=== PATIENT | female | born 1940 | race Caucasian/White ===

== ENCOUNTER → 2016-07-14 | Outpatient (CLI) | payer MEDICARE, OTHER ==
[~2016-07-14] MED LIST: ADVAIR 250-501 EACH IH; ASPIRIN PO; AURALGAN OTIC S14 ML OT; AZMACORT20 GM INH; CALCIUM 500 + D1 TAB PO; CERTAGEN PO; COMBIVENT INH14.7 GM INH; CONGESTION MED; HCTZ PO; LIPITOR PO; MOBIC PO; NEXIUM PO; ULTRAM PO; VICODIN 5/1 TAB 5/50 PO; ZITHROMAX1 G/PKT PO; ZOCOR PO; ZYRTEC PO
--- NOTE | ~2016-07-14 | CR63 ---
[facility] A Service of [facility] RADIOLOGY TEXT RESULTS PATIENT: JENS RUSSELL LOCATION: SRAD : 40 UNIT #: [id number] AGE: [address]: OMER CHAPIN APRN SEX: F ORDER DR: [id number] [address] [address] [id number] O MR#: [id number] Acc #: [id number] NAME: JENS RUSSELL : 1940 SEX: F STUDY DATE/TIME: 07/14/2016 11:13 UNIT: [facility] ROOM: STUDY DESCRIPTION: CR Chest 2 View Attending Physician: Omer Chapin Aprn Referring Physician: Omer Chapin Aprn Ordering Physician: Staff Doctor Not On Primary Care Physician: Yonathan Baires M.D. MEDICAL IMAGING REPORT This report is preliminary unless electronic signature is present. EXAM Chest 07/14/2016 HISTORY 75-year-old female patient. Short of air, cough, congestion. 50 year smoking history with history of asthma. Current symptoms x2 weeks. COMPARISON Chest 09/27/2006. FINDINGS Two-view chest demonstrates normal heart size. There is some calcification in the aortic arch. Reduced inspiratory effort noted. Patchy infiltrates are present in both lung bases. Hilar structures are preserved. Moderate calcification noted in the visualized abdominal aorta. IMPRESSION Mild interstitial prominence throughout both lungs. Bibasilar patchy infiltrates consistent with pneumonia. Short interval follow up recommended. Dictated by... Marco Garcia M.D. THIS IS AN ELECTRONICALLY VERIFIED REPORT Marco Garcia M.D. at 07/14/2016 4:01 PM SHALOM/donald TD: 07/14/2016 15:12 JOB #: [id number] [facility] A Service of [facility] RADIOLOGY TEXT RESULTS PATIENT: JENS RUSSELL LOCATION: SRA : 40 UNIT #: [id number] AGE: [address]: OMER CHAPIN APRN SEX: F ORDER DR: MEDICAL IMAGING REPORT Page 1 of 1
== END | disposition home or self-care (01) ==
LOC: SRAD 11:05
DX: R05 Cough (principal); R91.8 Other nonspecific abnormal finding of lung field
CPT/HCPCS: 71020